=== PATIENT | female | born 1955 | race Caucasian/White ===

== ENCOUNTER 2024-04-14 06:04 | Day surgery (SDC) | payer OTHER ==
[~2024-04-14] VITALS: Ht 165.1 cm; Wt 83.2 kg
[~2024-04-14 06:04] MED LIST: GLIP5TAB15 PO; LEVO100 PO; METF-446 PO; SEMA1PEN3 SQ; SITA100 PO; VALS160T31 PO
[2024-04-14] MEDS ORDERED: BENZOCAINE 20% 50 MCG/SPRAY 57 GM TP ONE (06:05)
[2024-04-14] MEDS ORDERED: LIDOCAINE 4% 50 ML SOLUTION TP ONE (06:05)
[2024-04-14] MEDS ORDERED: ALBUTEROL SULFATE 2.5 MG/0.5 ML NEB SOLUTION NEB ONE (06:05)
[2024-04-14] MEDS ORDERED: LIDOCAINE 2% 11 ML JELLY TP ONE (06:05)
[2024-04-14] MEDS ORDERED: SODIUM CHLORIDE 0.9% 1,000 ML ONE (06:34)
[2024-04-14] MEDS: SODIUM CHLORIDE 0.9% 1,000 ML IV ONE (08:10)
[2024-04-14] MEDS ORDERED: CHOL500013 PO (08:15)
[2024-04-14] MEDS ORDERED: FERR325T23 PO (08:15)
[2024-04-14] MEDS ORDERED: ALBU18HF12 IH (08:15)
[2024-04-14] MEDS ORDERED: FLUT16SP NASAL (08:15)
[2024-04-14] MEDS ORDERED: FAMO20 PO (08:15)
[2024-04-14] MEDS ORDERED: ALEN70TA80 PO (08:15)
[2024-04-14] MEDS ORDERED: ASCO500 PO (08:15)
[2024-04-14 08:20] LABS: GLUCOMETER DEV NAME(LOC) SDS.; GLUCOSE,POINT OF CARE 108 MG/DL (70-110)
[2024-04-14] MEDS ORDERED: MIDAZOLAM HCL 2 MG/2 ML VIAL ONE (08:30)
[2024-04-14] MEDS ORDERED: FentaNYL CITRATE PF 100 MCG/2 ML VIAL ONE (08:30)
[2024-04-14 08:40] VITALS: PULSE 63; RESP 12; O2SAT 99
[2024-04-14] MEDS ORDERED: MethylPREDNISolone SOD SUCC 125 MG/2 ML VIAL ONE (09:14)
[2024-04-14] MEDS: MethylPREDNISolone SOD SUCC 125 MG/2 ML VIAL IVP ONE (09:43)
== END 2024-04-14 12:40 | disposition home or self-care (01) ==
LOC: SURGERY 06:04
PROVIDERS: ATTEND Internal Medicine Critical Care Medicine
DX: R05.3 Chronic cough (principal); R06.2 Wheezing; R04.2 Hemoptysis; J38.4 Edema of larynx; B37.0 Candidal stomatitis; J81.1 Chronic pulmonary edema; J84.10 Pulmonary fibrosis, unspecified; I10 Essential (primary) hypertension; E78.00 Pure hypercholesterolemia, unspecified; M19.90 Unspecified osteoarthritis, unspecified site; E89.0 Postprocedural hypothyroidism; Z79.84 Long term (current) use of oral hypoglycemic drugs; Z79.899 Other long term (current) drug therapy; Z98.890 Other specified postprocedural states
CPT/HCPCS: 31623; 82962; 87206; 87101; 87220; 87070; 31624; 94640; 71045; 87015; J3010; J2250; J2919; J7030; J7613; Z7610